=== PATIENT | female | born 1960 | race Caucasian/White ===

== ENCOUNTER 2017-11-09 15:34 | Emergency (ER) | payer OTHER ==
[2017-11-09 16:29] LABS: #Basophils 0.1 thou/uL (0.0-0.2); #Eosinphils 0.2 thou/uL (0.0-0.7); #Lymphocytes 2.4 thou/uL (1.20-3.40); #Monocytes 0.8 thou/uL (0.11-0.59); #Neutrophils 5.8 thou/uL (1.40-6.50); %Basophils 0.7 % (0.0-1.0); %Eosinophils 2.4 % (0.0-10.0); %Lymphocytes 26.3 % (21.0-51.0); %Monocytes 8.1 % (0.0-10.0); %Neutrophils 62.5 % (42.0-75.0); Hemoglobin 13.2 g/dL (12.0-16.0); Mean Corpuscular HGB CONC 33.3 g/dL (32.0-36.0); Mean Corpuscular Hemoglobin 31.2 pg (27.0-31.0); Mean Corpuscular Volume 93.6 fL (78.0-98.0); Mean Platelet Volume 7.5 fL (7.4-10.4); Platelet Count 344 thou/uL (130-400); RBC Distribution Width 12.3 % (11.5-14.5); Red Blood Cell (RBC) Count 4.24 mill/uL (4.20-5.40); White Blood Cell (WBC) Count 9.3 thou/uL (4.8-10.8)
--- NOTE | 2017-11-09 16:36 | RAD ---
CHEST TWO VIEWS: 11/09/17 HISTORY: Cough. Heart size and mediastinum are within normal limits. The lungs are clear of any infiltrative process. No interval change since an 10/04/17 study. IMPRESSION: No active intrathoracic disease. POS: [facility]
[2017-11-09] MEDS ORDERED: predniSONE 20 MG TAB ONE (16:40)
[2017-11-09 16:46] LABS: ALT (SGPT) 14 U/L (8-55); AST (SGOT) 23 U/L (5-34); Albumin 4.2 g/dL (3.5-5.0); Alcohol Less than 10 mg/dL (Less than 10); Alkaline Phosphatase 118 U/L (40-150); Anion Gap 15 mmol/L (10-20); BUN (Urea Nitrogen) 9 mg/dL (9.8-20.1); Bilirubin, Total 0.4 mg/dL (0.2-1.2); Calc. Creatinine Clearance 0 mL/min (70-130); Calcium 9.2 mg/dL (7.8-10.44); Carbon Dioxide 23 mmol/L (22-29); Chloride 100 mmol/L (98-107); Estimated GFR-MDRD Greater than 90; Globulin 2.9 g/dL (2.4-3.5); Glucose 111 mg/dL (70-105); Potassium 3.6 mmol/L (3.5-5.1); Protein, Total 7.1 g/dL (6.0-8.3); Sodium 134 mmol/L (136-145)
[2017-11-09 16:50] LABS: Troponin I Less than 0.010 ng/mL (< 0.028)
[2017-11-09 16:56] LABS: Bilirubin Negative (Negative); Blood, Urine Trace (Negative); Clarity CLOUDY (Clear); Glucose, Urine (Dipstick) Negative (Negative); Leukocyte Large (Negative); Nitrite Negative (Negative); Protein, Urine (Dipstick) Negative (Neg-Trace); Specific Gravity, Urine 1.009 (1.002-1.036); Urobilinogen 0.2 mg/dL (0.2-1.0)
[2017-11-09 16:57] LABS: Bacteria/HPF Rare-Few HPF (None Seen); Hyaline Casts/LPF 0-3 HYALINE CAST LPF (0-3 Hyaline); Pathc Cast-AUWi Flag 0.87 (0-2.49); WBC/HPF 21-50 HPF (0-3)
== END 2017-11-09 17:34 | disposition home or self-care (01) ==
LOC: ERS 15:34
DX: J44.1 Chronic obstructive pulmonary disease with (acute) exacerbation (principal); I10 Essential (primary) hypertension; N39.0 Urinary tract infection, site not specified; R31.9 Hematuria, unspecified; E78.5 Hyperlipidemia, unspecified; F31.9 Bipolar disorder, unspecified; F17.210 Nicotine dependence, cigarettes, uncomplicated
CPT/HCPCS: 71046; 80053; 80307; 81003; 81015; 83880; 84484; 85025; 87804; 93005; J7506; J7620

== ENCOUNTER 2018-01-22 12:18 | Emergency (ER) | payer OTHER ==
--- NOTE | 2018-01-22 14:48 | RAD ---
TWO VIEWS LEFT HIP: Comparison: None. History: Left hip pain for 1 year. FINDINGS: Two views of the left hip shows no evidence of acute fracture or dislocation. No degenerative changes are seen. No soft tissue swelling is present. IMPRESSION: Unremarkable exam. POS: [facility]
== END 2018-01-22 14:07 | disposition home or self-care (01) ==
LOC: ERS 12:18
DX: S70.02XA Contusion of left hip, initial encounter (principal); R56.9 Unspecified convulsions; E78.5 Hyperlipidemia, unspecified; I10 Essential (primary) hypertension; F31.9 Bipolar disorder, unspecified; F17.210 Nicotine dependence, cigarettes, uncomplicated; W19.XXXA Unspecified fall, initial encounter

== ENCOUNTER 2018-02-06 12:10 | Emergency (ER) | payer OTHER ==
--- NOTE | 2018-02-06 13:30 | RAD ---
RADIOGRAPH CHEST 1 VIEW: HISTORY: 58-year-old female with altered mental status. No additional clinical information is available. FINDINGS: There are no air space densities, pulmonary edema, pneumothorax, or cardiomegaly. The lateral costop hrenic angles are sharp. IMPRESSION: No acute cardiopulmonary findings. santos POS: [facility]
[2018-02-06 13:49] LABS: #Lymphocytes 1.6 thou/uL (1.20-3.40); #Monocytes 0.7 thou/uL (0.11-0.59); #Neutrophils 7.6 thou/uL (1.40-6.50); %Basophils 0.4 % (0.0-1.0); %Eosinophils 0.3 % (0.0-10.0); %Lymphocytes 15.7 % (21.0-51.0); %Monocytes 6.9 % (0.0-10.0); %Neutrophils 76.6 % (42.0-75.0); Hemoglobin 15.6 g/dL (12.0-16.0); Mean Corpuscular HGB CONC 33.7 g/dL (32.0-36.0); Mean Corpuscular Hemoglobin 32.2 pg (27.0-31.0); Mean Corpuscular Volume 95.5 fL (78.0-98.0); Mean Platelet Volume 7.6 fL (7.4-10.4); Platelet Count 286 thou/uL (130-400); RBC Distribution Width 12.1 % (11.5-14.5); Red Blood Cell (RBC) Count 4.85 mill/uL (4.20-5.40)
[2018-02-06 14:09] LABS: ALT (SGPT) 17 U/L (8-55); AST (SGOT) 20 U/L (5-34); Albumin 4.6 g/dL (3.5-5.0); Alkaline Phosphatase 102 U/L (40-150); Anion Gap 15 mmol/L (10-20); BUN (Urea Nitrogen) 10 mg/dL (9.8-20.1); Bilirubin, Total 0.2 mg/dL (0.2-1.2); Calc. Creatinine Clearance 0 mL/min (70-130); Calcium 9.8 mg/dL (7.8-10.44); Carbon Dioxide 22 mmol/L (22-29); Chloride 106 mmol/L (98-107); Estimated GFR-MDRD 88; Globulin 2.8 g/dL (2.4-3.5); Glucose 120 mg/dL (70-105); Potassium 3.3 mmol/L (3.5-5.1); Protein, Total 7.4 g/dL (6.0-8.3); Sodium 140 mmol/L (136-145)
[2018-02-06] MEDS ORDERED: Potassium Chloride 20 MEQ TAB ONE (15:08)
== END 2018-02-06 15:23 | disposition home or self-care (01) ==
LOC: ERS 12:10
DX: R56.9 Unspecified convulsions (principal); I10 Essential (primary) hypertension; F17.210 Nicotine dependence, cigarettes, uncomplicated; F41.9 Anxiety disorder, unspecified; Z79.899 Other long term (current) drug therapy
CPT/HCPCS: 36415; 71045; 80053; 84484; 85025; 93005

== ENCOUNTER 2018-06-02 12:00 | Day surgery (SDC) | payer OTHER ==
[2018-05-30 17:18] VITALS: BMI 27.2
--- NOTE | 2018-06-02 15:43 | OP ---
DATE OF PROCEDURE: 06/02/2018 [facility] SURGEON: None. PROCEDURES PERFORMED: Colonoscopy with snare polypectomy and biopsies. INDICATIONS: 1. Chronic diarrhea. 2. Rectal bleeding. 3. This is the patient's first colonoscopy. MEDICATIONS: See Anesthesia record. FINDINGS: After discussion of the risks, benefits, and alternatives of the procedure, informed consent was obtained and witnessed. Pre-endoscopic cardiopulmonary examination was satisfactory. Time-out was performed before sedation was achieved. Sedation was achieved with Anesthesia assistance in the endoscopy unit. Digital rectal exam was performed, which showed some external hemorrhoidal skin tags. A Pentax adult colonoscope was inserted into the anus and passed forward to the cecum in the usual fashion. The cecal base was identified by the appendiceal orifice as well as the ileocecal valve. The terminal ileum was intubated and the ileal mucosa appeared normal. The colonoscope was then slowly withdrawn in a gradual and circumferential manner with careful examination of the entire colonic mucosa. The quality of the prep was fair, but with extensive irrigation and suctioning, it was adequate. The colonic mucosa appeared normal throughout. There was no evidence of any inflammatory disease. No erosions. No mucosal abnormalities. In the sigmoid colon, there were 2 small polyps, each measuring 2 to 3 mm in size. These were both completely removed with cold snare and retrieved for pathology. I did obtain random colon biopsies from the right and left colon to rule out microscopic colitis. Retroflexion in the rectum demonstrated only small internal hemorrhoids. The colonoscope was completely withdrawn and the patient allowed to recover. The patient tolerated the procedure well. There were no immediate postprocedure complications. IMPRESSION: 1. Two tiny sigmoid colon polyps, completely removed with cold snare and retrieved for pathology. 2. Small internal hemorrhoids. 3. Otherwise normal colonoscopy to the terminal ileum, with random colon biopsies obtained to rule out microscopic colitis. RECOMMENDATIONS: 1. Follow up results on the biopsies. 2. Repeat colonoscopy for surveillance in 5 years. 3. The patient can use Imodium 2 mg by mouth 1 to 2 times per day as needed for ongoing diarrhea symptoms. 4. The patient can follow up in the GI clinic as needed. Job ID: [id number]
== END 2018-06-02 15:30 | disposition home or self-care (01) ==
LOC: SDC 12:00
PROVIDERS: ATTEND Internal Medicine
PROC: 0DBF8ZX Excision of Right Large Intestine, Via Natural or Artificial Opening Endoscopic, Diagnostic (ICD-10-PCS; principal; 2018-06-02)
PROC: 0DBN8ZZ Excision of Sigmoid Colon, Via Natural or Artificial Opening Endoscopic (ICD-10-PCS; principal; 2018-06-02)
PROC: 0DBG8ZX Excision of Left Large Intestine, Via Natural or Artificial Opening Endoscopic, Diagnostic (ICD-10-PCS; principal; 2018-06-02)
DX: K62.5 Hemorrhage of anus and rectum (principal); D12.5 Benign neoplasm of sigmoid colon; K52.9 Noninfective gastroenteritis and colitis, unspecified; K64.8 Other hemorrhoids; J44.9 Chronic obstructive pulmonary disease, unspecified; F31.9 Bipolar disorder, unspecified; E03.9 Hypothyroidism, unspecified; F17.200 Nicotine dependence, unspecified, uncomplicated; Z79.51 Long term (current) use of inhaled steroids; Z79.899 Other long term (current) drug therapy; Z88.5 Allergy status to narcotic agent
CPT/HCPCS: 88305

== ENCOUNTER 2018-07-02 11:03 | Emergency (ER) | payer OTHER ==
[2018-07-02 11:41] LABS: #Eosinphils 0.1 thou/uL (0.0-0.7); #Lymphocytes 1.8 thou/uL (1.20-3.40); #Monocytes 0.8 thou/uL (0.11-0.59); #Neutrophils 5.4 thou/uL (1.40-6.50); %Basophils 0.6 % (0.0-1.0); %Eosinophils 1.7 % (0.0-10.0); %Lymphocytes 21.7 % (21.0-51.0); %Monocytes 10.2 % (0.0-10.0); %Neutrophils 65.7 % (42.0-75.0); Hemoglobin 12.5 g/dL (12.0-16.0); Mean Corpuscular HGB CONC 34.3 g/dL (32.0-36.0); Mean Corpuscular Hemoglobin 32.5 pg (27.0-31.0); Mean Corpuscular Volume 94.7 fL (78.0-98.0); Mean Platelet Volume 6.9 fL (7.4-10.4); Platelet Count 233 thou/uL (130-400); RBC Distribution Width 11.7 % (11.5-14.5); Red Blood Cell (RBC) Count 3.87 mill/uL (4.20-5.40); White Blood Cell (WBC) Count 8.2 thou/uL (4.8-10.8)
--- NOTE | 2018-07-02 11:57 | RAD ---
PORTABLE CHEST 1 VIEW: Date: 07/02/18 Time: 1147 hours HISTORY: Chest pain. FINDINGS: Comparison made with exam of 02/06/18. The heart size is normal. The lungs are expanded without focal areas of consolidation, pneumothoraces , or pleural effusions. IMPRESSION: No acute process. POS: [facility]
[2018-07-02 12:11] LABS: ALT (SGPT) 9 U/L (8-55); AST (SGOT) 14 U/L (5-34); Alkaline Phosphatase 92 U/L (40-150); Anion Gap 11 mmol/L (10-20); BUN (Urea Nitrogen) 8 mg/dL (9.8-20.1); Bilirubin, Total 0.3 mg/dL (0.2-1.2); Calc. Creatinine Clearance 0 mL/min (70-130); Calcium 9.1 mg/dL (7.8-10.44); Carbon Dioxide 26 mmol/L (22-29); Chloride 97 mmol/L (98-107); Estimated GFR-MDRD 85; Globulin 2.4 g/dL (2.4-3.5); Glucose 125 mg/dL (70-105); Potassium 4.1 mmol/L (3.5-5.1); Protein, Total 6.4 g/dL (6.0-8.3); Sodium 130 mmol/L (136-145)
--- NOTE | 2018-07-05 14:36 | EKG ---
Test Reason : DIZZINESS Blood Pressure : / mmHG Vent. Rate : 074 BPM Atrial Rate : 074 BPM P-R Int : 142 ms QRS Dur : 078 ms QT Int : 358 ms P-R-T Axes : 063 -16 040 degrees QTc Int : 397 ms Normal sinus rhythm Septal infarct , age undetermined Abnormal ECG Confirmed by FARNCES RUIZ D.O. ([id number]), graphics editor DONOVAN MCRAE ([id number]) on 07/05/2018 2:36:03 PM Referred By: Confirmed By:FRANCES RUIZ D.O.
== END 2018-07-02 13:37 | disposition home or self-care (01) ==
LOC: ERS 11:03
DX: R06.02 Shortness of breath (principal); Z71.6 Tobacco abuse counseling; E78.5 Hyperlipidemia, unspecified; I10 Essential (primary) hypertension; F31.9 Bipolar disorder, unspecified; F41.9 Anxiety disorder, unspecified; F17.210 Nicotine dependence, cigarettes, uncomplicated; Z79.899 Other long term (current) drug therapy
CPT/HCPCS: 71045; 80053; 80307; 85025; 93005; 94640; 94760; 99406

== ENCOUNTER 2022-01-14 11:28 | Inpatient (IN) | payer OTHER ==
[2022-01-14 12:25] LABS: #Basophils 0.1 thou/uL (0.0-0.2); #Lymphocytes 0.6 thou/uL (1.20-3.40); #Monocytes 0.5 thou/uL (0.11-0.59); #Neutrophils 8.4 thou/uL (1.40-6.50); %Basophils 0.9 % (0.0-1.0); %Lymphocytes 6.3 % (21.0-51.0); %Monocytes 5.5 % (0.0-10.0); %Neutrophils 87.2 % (42.0-75.0); Hemoglobin 14.1 g/dL (12.0-16.0); Mean Corpuscular HGB CONC 33.6 g/dL (32.0-36.0); Mean Corpuscular Hemoglobin 31.9 pg (27.0-31.0); Mean Corpuscular Volume 94.9 fl (78.0-98.0); Mean Platelet Volume 7.4 fL (7.4-10.4); Platelet Count 200 10x3/uL (130-400); RBC Distribution Width 11.6 % (11.5-14.5); Red Blood Cell (RBC) Count 4.43 mill/uL (4.20-5.40); White Blood Cell (WBC) Count 9.6 10x3/uL (4.8-10.8)
[2022-01-14 12:48] LABS: ALT (SGPT) 15 U/L (8-55); AST (SGOT) 27 U/L (5-34); Albumin 4.2 g/dL (3.4-4.8); Alkaline Phosphatase 94 U/L (40-110); Anion Gap 16 mmol/L (10-20); BUN (Urea Nitrogen) 8 mg/dL (9.8-20.1); Bilirubin, Total 0.4 mg/dL (0.2-1.2); Calc. Creatinine Clearance 0 mL/min (70-130); Calcium 8.5 mg/dL (7.8-10.44); Carbon Dioxide 16 mmol/L (23-31); Chloride 93 mmol/L (98-107); Estimated GFR 97; Globulin 2.7 g/dL (2.4-3.5); Glucose 116 mg/dL (80-115); Potassium 3.9 mmol/L (3.5-5.1); Protein, Total 6.9 g/dL (5.8-8.1); Sodium 121 mmol/L (136-145)
[2022-01-14] MEDS ORDERED: FENTANYL 50 MCG/ML 1 ML VIAL ONE (15:08)
[2022-01-14] MEDS ORDERED: Acetaminophen 500 MG TAB ONE (16:11)
[2022-01-14] MEDS ORDERED: Ondansetron ODT 4 MG TAB PO PRN (16:18)
[2022-01-14] MEDS ORDERED: Ondansetron PF 4 MG/2 ML Vial IVP PRN (16:18)
[2022-01-14] MEDS ORDERED: Albuterol Sulfate 2.5 mg/3 ml Neb NEB PRN (16:45)
[2022-01-14 17:29] VITALS: BMI 26.9
[2022-01-14] MEDS: Albuterol Sulfate 2.5 mg/3 ml Neb NEB SCH ×2 (18:39→23:57)
[2022-01-14] MEDS: Nicotine 14 MG PATCH TD SCH (18:48)
[2022-01-14] MEDS: Sodium Chloride 0.9% 1,000 ML IV SCH ×2 (18:48→22:00)
[2022-01-14 22:43] LABS: SARS-CoV-2 NAA Rapid Test Not Detected (NotDetected)
[2022-01-14 23:33] LABS: Amphetamine Not Detected (NotDetected); Barbiturates Screen Not Detected (NotDetected); Benzodiazepine Screen Not Detected (NotDetected); Cocaine Metabolite Screen Not Detected (NotDetected); Methadone Not Detected (NotDetected); Methamphetamine Not Detected (NotDetected); Opiate Screen Not Detected (NotDetected); Oxycodone Screen Not Detected (NotDetected); Phencyclidine (PCP) Not Detected (NotDetected); THC/Cannabinoid Screen Detected (NotDetected); Tricyclic Screen Not Detected (NotDetected)
[2022-01-15] MEDS: Loperamide HCl 2 MG CAP PO PRN ×2 (02:14→08:37)
[2022-01-15] MEDS: Albuterol Sulfate 2.5 mg/3 ml Neb NEB SCH ×4 (02:30→13:29)
[2022-01-15] MEDS ORDERED: OLANZapine 10 MG VIAL IM SCH (04:00)
[2022-01-15] MEDS ORDERED: Sterile Water 10 ML VIAL FS PRN (04:15)
[2022-01-15] MEDS ORDERED: Oseltamivir 75 MG CAP PO SCH (04:15)
[2022-01-15] MEDS ORDERED: Benzonatate 100 MG CAP PO PRN (05:38)
[2022-01-15] MEDS ORDERED: Morphine 4 MG/ML VIAL SLOW IVP SCH (05:45)
[2022-01-15 06:42] LABS: #Lymphocytes 0.8 thou/uL (1.20-3.40); #Monocytes 0.6 thou/uL (0.11-0.59); #Neutrophils 5.1 thou/uL (1.40-6.50); %Basophils 0.4 % (0.0-1.0); %Eosinophils 0.1 % (0.0-10.0); %Lymphocytes 12.7 % (21.0-51.0); %Monocytes 8.4 % (0.0-10.0); %Neutrophils 78.3 % (42.0-75.0); Hemoglobin 14.9 g/dL (12.0-16.0); Mean Corpuscular HGB CONC 33.7 g/dL (32.0-36.0); Mean Corpuscular Hemoglobin 32.3 pg (27.0-31.0); Mean Corpuscular Volume 95.7 fl (78.0-98.0); Mean Platelet Volume 7.5 fL (7.4-10.4); Platelet Count 179 10x3/uL (130-400); RBC Distribution Width 11.7 % (11.5-14.5); Red Blood Cell (RBC) Count 4.63 mill/uL (4.20-5.40); White Blood Cell (WBC) Count 6.5 10x3/uL (4.8-10.8)
[2022-01-15 07:06] LABS: Anion Gap 13 mmol/L (10-20); BUN (Urea Nitrogen) 7 mg/dL (9.8-20.1); Calc. Creatinine Clearance 94 mL/min (70-130); Calcium 8.4 mg/dL (7.8-10.44); Carbon Dioxide 19 mmol/L (23-31); Chloride 101 mmol/L (98-107); Estimated GFR 100; Glucose 105 mg/dL (80-115); Potassium 3.4 mmol/L (3.5-5.1); Sodium 130 mmol/L (136-145)
[2022-01-15] MEDS ORDERED: Potassium Chloride 20 MEQ TAB PO SCH (08:45)
[2022-01-15] MEDS ORDERED: levETIRAcetam 500 MG TAB PO PRN (08:46)
[2022-01-15] MEDS ORDERED: Prevnar 13-Val Conj/PF 0.5 ML SYRINGE IM ONE (09:00)
[2022-01-15] MEDS ORDERED: FLU VACC QS2022-23(6MOS UP)/PF 60 MCG/0.5 ML SYRINGE IM ONE (09:00)
[2022-01-15] MEDS ORDERED: Mometasone 100 MCG/Formoterol 5 MCG 120 PUFF INHALER INH PRN (09:13)
[2022-01-15] MEDS ORDERED: Zolpidem Tartrate 5 MG TAB PO PRN (09:14)
[2022-01-15] MEDS ORDERED: Albuterol Sulfate 2.5 mg/3 ml Neb NEB PRN (09:15)
[2022-01-15] MEDS: Sodium Chloride 0.9% 1,000 ML IV SCH ×2 (09:30→19:59)
[2022-01-15] MEDS: Atenolol 50 MG TAB PO SCH (09:35)
[2022-01-15] MEDS: OLANZapine 5 MG TAB PO SCH (09:36)
[2022-01-15] MEDS: Levothyroxine Sodium 50 MCG TAB PO SCH (09:36)
[2022-01-15] MEDS: clonazePAM 1 MG TAB PO SCH ×2 (09:36→21:41)
[2022-01-15] MEDS: carBAMazepine 100 mg Chewable Tablet PO SCH ×2 (09:36→21:42)
[2022-01-15] MEDS: Enoxaparin Sodium 40 MG/0.4 ML SYRINGE SC SCH (09:37)
[2022-01-15] MEDS: Pregabalin 75 MG CAP PO SCH ×3 (09:37→21:40)
[2022-01-15] MEDS: guaiFENesin/DM ER PO SCH ×2 (09:38→21:42)
[2022-01-15] MEDS: Nicotine 14 MG PATCH TD SCH (14:13)
[2022-01-15] MEDS ORDERED: clonazePAM 1 MG TAB PO PRN (17:06)
[2022-01-15] MEDS ORDERED: Losartan 25 MG TAB PO SCH (21:00)
[2022-01-15] MEDS: Oseltamivir 75 MG CAP PO SCH (22:40)
[2022-01-16 06:02] LABS: #Lymphocytes 1.2 thou/uL (1.20-3.40); #Monocytes 0.6 thou/uL (0.11-0.59); #Neutrophils 2.7 thou/uL (1.40-6.50); %Basophils 0.3 % (0.0-1.0); %Eosinophils 0.6 % (0.0-10.0); %Lymphocytes 25.7 % (21.0-51.0); %Monocytes 13.1 % (0.0-10.0); %Neutrophils 60.3 % (42.0-75.0); Hemoglobin 14.9 g/dL (12.0-16.0); Mean Corpuscular HGB CONC 33.9 g/dL (32.0-36.0); Mean Corpuscular Hemoglobin 32.8 pg (27.0-31.0); Mean Corpuscular Volume 96.8 fl (78.0-98.0); Mean Platelet Volume 7.8 fL (7.4-10.4); Platelet Count 187 10x3/uL (130-400); RBC Distribution Width 11.8 % (11.5-14.5); Red Blood Cell (RBC) Count 4.53 mill/uL (4.20-5.40); White Blood Cell (WBC) Count 4.5 10x3/uL (4.8-10.8)
[2022-01-16 06:16] LABS: Anion Gap 13 mmol/L (10-20); BUN (Urea Nitrogen) 10 mg/dL (9.8-20.1); Calc. Creatinine Clearance 88 mL/min (70-130); Calcium 8.7 mg/dL (7.8-10.44); Carbon Dioxide 21 mmol/L (23-31); Chloride 102 mmol/L (98-107); Estimated GFR 99; Glucose 105 mg/dL (80-115); Potassium 3.7 mmol/L (3.5-5.1); Sodium 132 mmol/L (136-145)
[2022-01-16] MEDS: Oseltamivir 75 MG CAP PO SCH (09:36)
[2022-01-16] MEDS: guaiFENesin/DM ER PO SCH (09:37)
[2022-01-16] MEDS: clonazePAM 1 MG TAB PO SCH (09:37)
[2022-01-16] MEDS: OLANZapine 5 MG TAB PO SCH (09:37)
[2022-01-16] MEDS: Pregabalin 75 MG CAP PO SCH (09:37)
[2022-01-16] MEDS: Levothyroxine Sodium 50 MCG TAB PO SCH (09:37)
[2022-01-16] MEDS: carBAMazepine 100 mg Chewable Tablet PO SCH (09:38)
[2022-01-16] MEDS: Enoxaparin Sodium 40 MG/0.4 ML SYRINGE SC SCH (09:38)
[2022-01-16] MEDS: Atenolol 50 MG TAB PO SCH (09:38)
[2022-01-16] MEDS: Sodium Chloride 0.9% 1,000 ML IV SCH (10:05)
[2022-01-16 10:58] VITALS: BP 105/62; TEMP 98.2
== END 2022-01-16 15:30 | disposition home or self-care (01) | DRG 194 ==
LOC: ERS 11:28 → OBSVTOIN 16:51 → 2SW 16:51 → SJJU 20:09
PROVIDERS: ADMIT Internal Medicine; ATTEND Internal Medicine
DX: J10.1 Influenza due to other identified influenza virus with other respiratory manifestations (principal); E87.1 Hypo-osmolality and hyponatremia; Z20.822 Contact with and (suspected) exposure to COVID-19; F31.9 Bipolar disorder, unspecified; F17.210 Nicotine dependence, cigarettes, uncomplicated; F41.9 Anxiety disorder, unspecified; I10 Essential (primary) hypertension; E03.9 Hypothyroidism, unspecified; F12.10 Cannabis abuse, uncomplicated; Z28.21 Immunization not carried out because of patient refusal; Z88.5 Allergy status to narcotic agent; Z88.8 Allergy status to other drugs, medicaments and biological substances; Z79.899 Other long term (current) drug therapy; Z90.710 Acquired absence of both cervix and uterus; Z90.49 Acquired absence of other specified parts of digestive tract; Z82.3 Family history of stroke; Z82.49 Family history of ischemic heart disease and other diseases of the circulatory system; Z82.0 Family history of epilepsy and other diseases of the nervous system; Z82.61 Family history of arthritis; Z71.6 Tobacco abuse counseling
CPT/HCPCS: 36415; 71045; 80048; 80053; 80061; 80306; 83880; 83930; 83935; 84300; 84443; 84484; 85025; 87804; 93005; 94640; 96374; J1650; J2270; J3010; J7050; J7611; U0002

== ENCOUNTER 2022-05-14 12:17 | Emergency (ER) | payer OTHER ==
[2022-05-14 13:57] LABS: ALT (SGPT) 27 U/L (8-55); AST (SGOT) 22 U/L (5-34); Albumin 4.4 g/dL (3.4-4.8); Alkaline Phosphatase 123 U/L (40-110); Anion Gap 13 mmol/L (10-20); BUN (Urea Nitrogen) 7 mg/dL (9.8-20.1); Bilirubin, Total 0.2 mg/dL (0.2-1.2); Calc. Creatinine Clearance 0 mL/min (70-130); Calcium 9.4 mg/dL (7.8-10.44); Carbon Dioxide 24 mmol/L (23-31); Chloride 103 mmol/L (98-107); Estimated GFR 100; Globulin 2.9 g/dL (2.4-3.5); Glucose 91 mg/dL (80-115); Lipase 33 U/L (8-78); Potassium 3.7 mmol/L (3.5-5.1); Protein, Total 7.3 g/dL (5.8-8.1); Sodium 136 mmol/L (136-145)
[2022-05-14 14:01] LABS: #Basophils 0.1 thou/uL (0.0-0.2); #Eosinphils 0.2 thou/uL (0.0-0.7); #Lymphocytes 2.3 thou/uL (1.20-3.40); #Monocytes 0.6 thou/uL (0.11-0.59); #Neutrophils 4.1 thou/uL (1.40-6.50); %Basophils 1.1 % (0.0-1.0); %Eosinophils 2.5 % (0.0-10.0); %Lymphocytes 31.7 % (21.0-51.0); %Monocytes 8.5 % (0.0-10.0); %Neutrophils 56.2 % (42.0-75.0); Hemoglobin 14.5 g/dL (12.0-16.0); Mean Corpuscular HGB CONC 33.2 g/dL (32.0-36.0); Mean Corpuscular Hemoglobin 32.3 pg (27.0-31.0); Mean Corpuscular Volume 97.3 fl (78.0-98.0); Mean Platelet Volume 7.6 fL (7.4-10.4); Platelet Count 280 10x3/uL (130-400); RBC Distribution Width 12.2 % (11.5-14.5); White Blood Cell (WBC) Count 7.3 10x3/uL (4.8-10.8)
[2022-05-14] MEDS ORDERED: Magnesium 2 GM/50 ML BAG (IN WATER) ONE (14:25)
[2022-05-14] MEDS ORDERED: predniSONE 20 MG TAB ONE (14:25)
[2022-05-14] MEDS ORDERED: Albuterol 200 PUFF (6.7GM INHALER) ONE (14:54)
[2022-05-14] MEDS ORDERED: Sodium Chloride 0.65% Nasal 44 ML BOT EA NARE SCH (15:00)
[2022-05-14 15:23] LABS: SARS-CoV-2 NAA Rapid Test Not Detected (NotDetected)
== END 2022-05-14 15:56 | disposition home or self-care (01) ==
LOC: ERS 12:17
DX: J44.1 Chronic obstructive pulmonary disease with (acute) exacerbation (principal); E78.00 Pure hypercholesterolemia, unspecified; I10 Essential (primary) hypertension; F17.210 Nicotine dependence, cigarettes, uncomplicated; Z79.899 Other long term (current) drug therapy; Z20.822 Contact with and (suspected) exposure to COVID-19
CPT/HCPCS: 36415; 71045; 80053; 83690; 84484; 85025; 93005; J3475; J7512

== ENCOUNTER 2022-05-24 07:36 | Emergency (ER) | payer OTHER ==
[2022-05-24] MEDS ORDERED: Haloperidol Lactate 5 MG/ML VIAL ONE (08:04)
[2022-05-24 08:18] LABS: #Basophils 0.1 thou/uL (0.0-0.2); #Eosinphils 0.1 thou/uL (0.0-0.7); #Lymphocytes 2.7 thou/uL (1.20-3.40); #Monocytes 0.6 thou/uL (0.11-0.59); #Neutrophils 5.1 thou/uL (1.40-6.50); %Basophils 0.7 % (0.0-1.0); %Eosinophils 1.6 % (0.0-10.0); %Lymphocytes 31.1 % (21.0-51.0); %Monocytes 6.6 % (0.0-10.0); Hemoglobin 16.4 g/dL (12.0-16.0); Mean Corpuscular HGB CONC 34.2 g/dL (32.0-36.0); Mean Corpuscular Hemoglobin 32.7 pg (27.0-31.0); Mean Corpuscular Volume 95.4 fl (78.0-98.0); Mean Platelet Volume 6.6 fL (7.4-10.4); Platelet Count 454 10x3/uL (130-400); RBC Distribution Width 11.9 % (11.5-14.5); Red Blood Cell (RBC) Count 5.01 mill/uL (4.20-5.40); White Blood Cell (WBC) Count 8.5 10x3/uL (4.8-10.8)
[2022-05-24] MEDS ORDERED: LORazepam 2 MG/ML SYR.(CARPUJECT) ONE (08:45)
[2022-05-24 09:31] LABS: Albumin 4.6 g/dL (3.4-4.8)
[2022-05-24 09:33] LABS: Calcium 10.2 mg/dL (7.8-10.44); Chloride 98 mmol/L (98-107); Potassium 5.3 mmol/L (3.5-5.1); Sodium 129 mmol/L (136-145)
[2022-05-24 09:34] LABS: Globulin 3.7 g/dL (2.4-3.5); Glucose 127 mg/dL (80-115); Protein, Total 8.3 g/dL (5.8-8.1)
[2022-05-24 09:36] LABS: Anion Gap 19 mmol/L (10-20); Bilirubin, Total 0.5 mg/dL (0.2-1.2); Carbon Dioxide 17 mmol/L (23-31)
[2022-05-24 09:37] LABS: Alkaline Phosphatase 133 U/L (40-110); Calc. Creatinine Clearance 0 mL/min (70-130); Estimated GFR 93
[2022-05-24 09:38] LABS: BUN (Urea Nitrogen) 6 mg/dL (9.8-20.1)
[2022-05-24 09:39] LABS: AST (SGOT) 25 U/L (5-34)
[2022-05-24 09:40] LABS: ALT (SGPT) 17 U/L (8-55)
== END 2022-05-24 11:15 | disposition home or self-care (01) ==
LOC: ERS 07:36
DX: F41.1 Generalized anxiety disorder (principal); E87.5 Hyperkalemia; E87.1 Hypo-osmolality and hyponatremia; J44.9 Chronic obstructive pulmonary disease, unspecified; E78.00 Pure hypercholesterolemia, unspecified; I10 Essential (primary) hypertension; F17.210 Nicotine dependence, cigarettes, uncomplicated; Z79.899 Other long term (current) drug therapy
CPT/HCPCS: 36415; 80053; 85025; 93005; 96372; J1630; J2060

== ENCOUNTER 2022-09-10 20:14 | Emergency (ER) | payer OTHER | END 2022-09-10 20:45 | disposition home or self-care (01) | LOC: ERS 20:14 | DX: Z13.30 Encounter for screening examination for mental health and behavioral disorders, unspecified (principal) | CPT/HCPCS: 99282 ==

== ENCOUNTER 2023-01-31 08:43 | Emergency (ER) | payer OTHER ==
[2023-01-31] MEDS ORDERED: predniSONE 20 MG TAB ONE (09:03)
[2023-01-31 09:13] LABS: #Eosinphils 0.2 thou/uL (0.0-0.7); #Monocytes 0.5 thou/uL (0.11-0.59); #Neutrophils 4.6 thou/uL (1.40-6.50); %Basophils 0.1 % (0.0-1.0); %Eosinophils 2.3 % (0.0-10.0); %Lymphocytes 27.6 % (21.0-51.0); %Monocytes 6.8 % (0.0-10.0); %Neutrophils 62.9 % (42.0-75.0); Hematocrit 43.1 % (36.0-47.0); Hemoglobin 14.4 g/dL (12.0-16.0); Mean Corpuscular HGB CONC 33.4 g/dL (32.0-36.0); Mean Corpuscular Volume 95.8 fl (78.0-98.0); Mean Platelet Volume 9.5 fL (7.4-10.4); Platelet Count 336 10x3/uL (130-400); RBC Distribution Width 12.2 % (11.5-14.5); White Blood Cell (WBC) Count 7.4 10x3/uL (4.8-10.8)
[2023-01-31] MEDS ORDERED: Ipratropium/Albuterol 3 ML NEB ONE (09:13)
[2023-01-31 09:24] LABS: Bilirubin Negative (Negative); Blood, Urine Small (Negative); Glucose, Urine (Dipstick) Negative (Negative); Ketone, Urine Negative (Negative); Leukocyte Negative (Negative); Nitrite Negative (Negative); Protein, Urine (Dipstick) Negative (Neg-Trace); Urobilinogen 0.2 mg/dL (Less than 2)
[2023-01-31 09:27] LABS: Bacteria/HPF None Seen HPF (None Seen); CAUTI Indications for Culture Dysuria,urgency,freq; Clarity Clear (Clear); Squamous Epithelial 0-3 HPF (0-3); WBC/HPF 0-3 HPF (0-3)
[2023-01-31 09:28] LABS: Urine Culture Reflex No No
[2023-01-31 09:40] LABS: ALT (SGPT) 9 U/L (8-55); AST (SGOT) 15 U/L (5-34); Albumin 4.1 g/dL (3.4-4.8); Alkaline Phosphatase 105 U/L (40-110); Anion Gap 14 mmol/L (10-20); BUN (Urea Nitrogen) 5 mg/dL (9.8-20.1); Bilirubin, Total 0.4 mg/dL (0.2-1.2); Calc. Creatinine Clearance 0 mL/min (70-130); Calcium 9.1 mg/dL (7.8-10.44); Carbon Dioxide 26 mmol/L (23-31); Chloride 101 mmol/L (98-107); Estimated GFR 97; Glucose 107 mg/dL (80-115); Lipase 20 U/L (8-78); Potassium 4.1 mmol/L (3.5-5.1); Protein, Total 7.1 g/dL (5.8-8.1); Sodium 137 mmol/L (136-145)
[2023-01-31 09:42] LABS: Troponin I Less than 0.010 ng/mL (< 0.028)
[2023-01-31 09:57] LABS: SARS-CoV-2 NAA Rapid Test Not Detected (NotDetected)
== END 2023-01-31 11:02 | disposition home or self-care (01) ==
LOC: ERS 08:43
DX: J44.1 Chronic obstructive pulmonary disease with (acute) exacerbation (principal); I10 Essential (primary) hypertension; F17.210 Nicotine dependence, cigarettes, uncomplicated; Z20.822 Contact with and (suspected) exposure to COVID-19; Z79.899 Other long term (current) drug therapy
CPT/HCPCS: 36415; 71045; 80053; 81001; 83690; 84484; 85025; 93005; 94640; J7512; J7620

== ENCOUNTER 2023-08-08 04:11 | Emergency (ER) | payer OTHER ==
[2023-08-08] MEDS ORDERED: Dexamethasone 10 MG/ML VIAL ONE (05:04)
[2023-08-08] MEDS ORDERED: Ketorolac Tromethamine 30 MG (1 mL) VIAL ONE (05:04)
== END 2023-08-08 05:12 | disposition home or self-care (01) ==
LOC: ERS 04:11
DX: M54.41 Lumbago with sciatica, right side (principal); M79.604 Pain in right leg; I10 Essential (primary) hypertension; F17.290 Nicotine dependence, other tobacco product, uncomplicated; F17.210 Nicotine dependence, cigarettes, uncomplicated
CPT/HCPCS: 96372; 99282; J1100; J1885